=== PATIENT | male | born 1950 | race Caucasian/White ===

== ENCOUNTER 2017-03-26 15:17 | Outpatient (CLI) | payer MEDICARE, OTHER ==
[2017-03-26 16:16] LABS: #Eosinphils 0.1 thou/uL (0.0-0.7); #Lymphocytes 1.2 thou/uL (1.20-3.40); #Monocytes 0.7 thou/uL (0.11-0.59); #Neutrophils 7.7 thou/uL (1.40-6.50); %Basophils 0.5 % (0.0-1.0); %Eosinophils 1.1 % (0.0-10.0); %Lymphocytes 12.7 % (21.0-51.0); %Monocytes 7.1 % (0.0-10.0); %Neutrophils 78.7 % (42.0-75.0); Hemoglobin 15.2 g/dL (14.0-18.0); Mean Corpuscular HGB CONC 33.2 g/dL (32.0-36.0); Mean Corpuscular Hemoglobin 31.2 pg (27.0-31.0); Mean Platelet Volume 6.8 fL (7.4-10.4); Platelet Count 218 thou/uL (130-400); RBC Distribution Width 12.5 % (11.5-14.5); Red Blood Cell (RBC) Count 4.87 mill/uL (4.70-6.10); White Blood Cell (WBC) Count 9.8 thou/uL (4.8-10.8)
--- NOTE | 2017-03-26 16:22 | RAD ---
PA AND LATERAL OF THE CHEST: INDICATION: Preop exam. COMPARISON: None. FINDINGS: Lungs are clear. Heart size is within normal limits. 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 IMPRESSION: No acute cardiopulmonary abnormality. POS: [facility]
[2017-03-26 16:40] LABS: Anion Gap 12 mmol/L (10-20); BUN (Urea Nitrogen) 17 mg/dL (8.4-25.7); Calc. Creatinine Clearance 0 mL/min (70-130); Calcium 10.1 mg/dL (7.8-10.44); Carbon Dioxide 29 mmol/L (23-31); Chloride 100 mmol/L (98-107); Estimated GFR-MDRD 72; Glucose 99 mg/dL (80-115); Potassium 4.1 mmol/L (3.5-5.1); Sodium 137 mmol/L (136-145)
== END 2017-03-26 15:18 | disposition home or self-care (01) ==
LOC: LABBT 15:17
PROVIDERS: ATTEND Orthopaedic Surgery Hand Surgery
DX: Z01.818 Encounter for other preprocedural examination (principal); M19.131 Post-traumatic osteoarthritis, right wrist
CPT/HCPCS: 71046; 80048; 85025; 85610

== ENCOUNTER 2017-03-30 09:04 | Day surgery (SDC) | payer MEDICARE, OTHER ==
[2017-03-26 15:37] VITALS: BMI 34.2
[2017-03-30] MEDS ORDERED: CEFAZOLIN/Water 2 GM/20 ML SYRINGE ONE (09:31)
[2017-03-30] MEDS ORDERED: Midazolam HCl 2 mg/2 ml Vial ONE ×2 (09:55→10:37)
[2017-03-30] MEDS ORDERED: Fentanyl 100 MCG/2 ML VIAL ONE ×3 (09:55→15:23)
[2017-03-30] MEDS ORDERED: Zolpidem Tartrate 5 MG TAB PO PRN (10:30)
[2017-03-30] MEDS ORDERED: Ketorolac Tromethamine 30 MG/ML VIAL IVP PRN (10:30)
[2017-03-30] MEDS ORDERED: traMADol HCl 50 MG TAB PO PRN ×2 (10:30)
[2017-03-30] MEDS ORDERED: HYDROcodone/Acetaminophen 10/325 mg Tablet PO PRN ×2 (10:30)
[2017-03-30] MEDS ORDERED: Ondansetron HCl/PF 4 MG/2 ML Vial IVP PRN (10:30)
[2017-03-30] MEDS ORDERED: Promethazine HCl 25 MG/ML VIAL IM PRN (10:30)
[2017-03-30] MEDS ORDERED: Ropivacaine 0.2% 550 ML 550 ML NERVE BLCK SCH (10:30)
[2017-03-30] MEDS ORDERED: Fentanyl 100 MCG/2 ML VIAL IV PRN (10:31)
[2017-03-30] MEDS ORDERED: Thrombin 5000 UNITS/5 ML VIAL ONE (10:39)
[2017-03-30] MEDS ORDERED: Bacitracin Zinc Ointment 30 gm TUBE ONE (10:39)
--- NOTE | 2017-03-30 13:36 | EKG ---
Test Reason : PREOP Blood Pressure : / mmHG Vent. Rate : 069 BPM Atrial Rate : 069 BPM P-R Int : 210 ms QRS Dur : 088 ms QT Int : 392 ms P-R-T Axes : 039 023 023 degrees QTc Int : 420 ms Sinus rhythm with 1st degree A-V block Otherwise normal ECG Confirmed by OLI FAROOQ ([id number]) on 03/30/2017 1:36:17 PM Referred By: LORRAINE Confirmed By:OLI FAROOQ
[2017-03-30] MEDS ORDERED: Ropivacaine 0.2% HCl/PF (40 MG/20 ML VIAL) ONE (13:49)
[2017-03-30] MEDS ORDERED: Ropivacaine 0.5% HCl/PF (150 MG/30 ML VIAL) ONE (13:49)
[2017-03-30] MEDS ORDERED: Propofol 200 MG/20 ML VIAL ONE (15:21)
[2017-03-30] MEDS ORDERED: Dexamethasone 20 MG/5 ML VIAL ONE (15:21)
[2017-03-30] MEDS ORDERED: Ketorolac Tromethamine 30 MG/ML VIAL ONE ×2 (15:21→16:37)
[2017-03-30] MEDS ORDERED: diphenhydrAMINE 50 MG/ML VIAL ONE (15:21)
[2017-03-30] MEDS ORDERED: Lidocaine 1% PF 5 ML VIAL ONE (15:21)
[2017-03-30] MEDS ORDERED: Metoclopramide HCl 10 MG/2 ML VIAL ONE (15:21)
[2017-03-30] MEDS ORDERED: ePHEDrine/0.9% NaCl/PF SYRINGE 50 mg/10 ml ONE (15:21)
[2017-03-30] MEDS ORDERED: Ondansetron HCl/PF 4 MG/2 ML Vial ONE (15:21)
--- NOTE | 2017-03-30 21:02 | RAD ---
RIGHT WRIST: 03/30/17 Three fluoroscopic views taken in OR during internal fixation procedure. FINDINGS/IMPRESSION: These views show small metallic screws and pins transfixing carpal bones. The scaphoid has been excis ed. POS: [facility]
--- NOTE | 2017-04-02 12:48 | OP ---
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 POSTOPERATIVE DIAGNOSES: 1. 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 2. The patient had moderate amount of dorsal intercalated instability with a very visible scapholuna te gap. PROCEDURE PERFORMED: 1. Right wrist scaphoid excision. 2. Right wrist 4 corner arthrodesis/capital hamate lunate triquetrum mid carpal fusion. Two bone gr afting from cadaver and from the scaphoid. 3. Intraoperative capsule biopsy with diagnosis of possible pseudogout. 4. Marked tenosynovitis require tenosynovectomy. SURGEON: Dr. Ovidio Alonzo TOURNIQUET TIME: 120 minutes. ESTIMATED BLOOD LOSS: Estimated blood loss 100 mL. INDICATIONS: The patient had a SLAC phenomenon with edema probably dictated with tenosynovitis which was found. He had a complete obliteration of radial scaphoid and radial capitate joint, capitate pb nic joint markedly involved so this procedure was indicated more so than a total wrist fusion and de finitely more so than a proximal carpectomy. DESCRIPTION OF PROCEURE: After successful general LMA technique, a sterile prep and drape the limb w as exsanguinated, tourniquet inflated to 250 mmHg pressure. I then made a zigzag incision centered a long the fourth dorsal compartment, carried through skin, subcutaneous tissue, identifying the retina culum. Released the retinaculum with a Mono blade to see if the extensor pollicus longus protected it. We then retracted the contents. I did a distal posterior interosseous neurectomy done directly from inside the fourth compartment. We made a V-shaped opening in the wrist joint capsule to expose the entire radiocarpal wrist. From here, it was clear that the scaphoid more degenerated so we used a combination of a wire placed inside, a towel clip hot die picker along with tenotomy scissors and Freers. We were able to remove the scaphoid. Went to the back table, we remove the hard chondral bone, go t down to some soft subchondral bone, but it was less than adequate for a complete fusion as we had t o borrow a bone graft from cadaver. This was brought into the field and soaked for 15 minutes before using normal saline. We then used a combination of bur and small curettes with retraction from myself, assistant bookkeeper and the p atient then had a complete decortication of the involved capital lunate or triquetrum having to have to capitate joints down to bleeding cancellous bone. Once this was done, we irrigated and removed an y intraoperative impediments and then placed bone graft appropriately in the joint especially the cap ital lunate. Using K-wires under lunate to the radius and reduced the joint more central and to elim inate much of the dorsal instability as possible Once we had done this, we then pinned the cap itate to the lunate on its very radial end, we capitated the hand, performed x-rays and we had excell ent reduction. We placed the remainder of the cancellous bone chips from the cadaver in the joints a ll 4 of them, and once this was done, we then began progressive screw passage. We maintained the sag ittal plane reduction. We then placed a 2-4 cannulated screw in standard fashion across the capitate into the lunate without violating any of the joints, crossed the lunate and triquetrum, the screws f or the triquetrum area through a separate incision, then we placed a screw from the hamate into the capitate and this screw remained in excellent position. Finally a screw was placed from the hamate i nto the triquetrum and this screw had excellent purchase as well. We could replace more bone graft i nside the defects, we deflated the tourniquet, obtained hemostasis. We closed the capsule, rep roducing the feedback to its radial side with excellent #1 Ethibond OS 4 suture interrupted mattress pattern. The patient then had hemostasis completed, closed the retinaculum with a 3-0 Monocryl in in terrupted fashion and then the patient left the operating room without evidence of anesthetic or oper ative complication with the skin closure involving 2 layers running 3-0, 4-0 Monocryl for the deep d ermis and interrupted 4-0 nylon for the epidermis. Bulky dressing was applied with a sugar tong spli nt and the patient left the operating room without evidence of anesthetic or operative complication.
== END 2017-03-30 18:40 | disposition home or self-care (01) ==
LOC: SDC 09:04
PROVIDERS: ATTEND Orthopaedic Surgery Hand Surgery
PROC: 0RGN07Z Fusion of Right Wrist Joint with Autologous Tissue Substitute, Open Approach (ICD-10-PCS; principal; 2017-03-30)
DX: M19.131 Post-traumatic osteoarthritis, right wrist (principal); I10 Essential (primary) hypertension; Z98.1 Arthrodesis status; Z98.890 Other specified postprocedural states
CPT/HCPCS: 25825; 73110; 76001; 88305; 88333; 89060; 93005; 96374; A4306; C1713 ×2; 93010; J0131; J1100; J1200; J1885; J2001; J2250; J2405; J2704; J2765; J2795; J3010; J7620

== ENCOUNTER 2017-04-06 15:41 | Observation (INO) | payer MEDICARE, OTHER ==
[~2017-04-06 15:41] MED LIST: Lidocaine 1% PF 5 ML VIAL ONE; PHENYLEPHRINE-NS 100 MCG/ML 10 ML SYRINGE ONE; Propofol 200 MG/20 ML VIAL ONE; ePHEDrine/0.9% NaCl/PF SYRINGE 50 mg/10 ml ONE
[2017-04-06] MEDS ORDERED: Vancomycin HCl 1.5 GM in Sodium Chloride 0.9% 250 ML 300 ML IVPB SCH (16:30)
[2017-04-06] MEDS ORDERED: Sodium Chloride 0.9% 50 ML ONE (21:22)
[2017-04-06] MEDS ORDERED: Bupivacaine 0.5% 10 ML VIAL ONE (21:56)
[2017-04-06] MEDS ORDERED: Midazolam HCl 2 mg/2 ml Vial ONE (22:06)
[2017-04-06] MEDS ORDERED: Fentanyl 250 MCG/5 ML VIAL ONE (22:06)
[2017-04-06] MEDS ORDERED: Thrombin 5000 UNITS/5 ML VIAL ONE ×3 (22:45→23:49)
[2017-04-06] MEDS ORDERED: Bacitracin Zinc Ointment 30 gm TUBE ONE (23:51)
[2017-04-07] MEDS ORDERED: Promethazine HCl 25 MG/ML VIAL SLOW IVP PRN (00:29)
[2017-04-07] MEDS ORDERED: Ondansetron HCl/PF 4 MG/2 ML Vial IVP PRN (00:29)
[2017-04-07] MEDS ORDERED: Promethazine HCl 25 MG/ML VIAL IM PRN (00:29)
[2017-04-07] MEDS ORDERED: Ondansetron HCl/PF 4 MG/2 ML Vial IV PRN (00:31)
[2017-04-07] MEDS ORDERED: Ondansetron HCl/PF 4 MG/2 ML Vial ONE (00:34)
[2017-04-07] MEDS ORDERED: Communication Order-Pharmacy FS SCH (00:45)
[2017-04-07] MEDS ORDERED: TETANUS AND DIPHTHERIA TOX/PF 0.5 ML DISP.SYRIN IM SCH (00:45)
[2017-04-07 01:01] LABS: #Eosinphils 0.3 thou/uL (0.0-0.7); #Lymphocytes 1.5 thou/uL (1.20-3.40); #Monocytes 0.5 thou/uL (0.11-0.59); #Neutrophils 5.7 thou/uL (1.40-6.50); %Basophils 0.4 % (0.0-1.0); %Eosinophils 3.4 % (0.0-10.0); %Lymphocytes 18.3 % (21.0-51.0); %Monocytes 6.3 % (0.0-10.0); %Neutrophils 71.6 % (42.0-75.0); Hemoglobin 12.9 g/dL (14.0-18.0); Mean Corpuscular HGB CONC 31.6 g/dL (32.0-36.0); Mean Corpuscular Hemoglobin 30.2 pg (27.0-31.0); Mean Corpuscular Volume 95.5 fl (80.0-94.0); Mean Platelet Volume 6.4 fL (7.4-10.4); Platelet Count 283 thou/uL (130-400); RBC Distribution Width 12.5 % (11.5-14.5); Red Blood Cell (RBC) Count 4.29 mill/uL (4.70-6.10)
[2017-04-07 01:10] LABS: INR-International Normal Ratio 1.1; PTT 34.7 SEC (22.9-36.1); Prothrombin Time 14.4 SEC (12.0-14.7)
[2017-04-07] MEDS: HYDROcodone/Acetaminophen 5/325 mg Tablet PO PRN ×5 (01:52→19:56)
[2017-04-07 02:03] VITALS: BMI 34.4
[2017-04-07 02:09] LABS: ALT (SGPT) 28 U/L (8-55); AST (SGOT) 19 U/L (5-34); Albumin 3.9 g/dL (3.4-4.8); Alkaline Phosphatase 87 U/L (40-150); Anion Gap 14 mmol/L (10-20); BUN (Urea Nitrogen) 15 mg/dL (8.4-25.7); Bilirubin, Total 0.6 mg/dL (0.2-1.2); Calc. Creatinine Clearance 99 mL/min (70-130); Calcium 9.4 mg/dL (7.8-10.44); Carbon Dioxide 24 mmol/L (23-31); Chloride 102 mmol/L (98-107); Estimated GFR-MDRD 71; Globulin 2.8 g/dL (2.4-3.5); Glucose 115 mg/dL (80-115); Potassium 4.1 mmol/L (3.5-5.1); Protein, Total 6.7 g/dL (5.8-8.1); Sodium 136 mmol/L (136-145)
[2017-04-07] MEDS: Vancomycin HCl 1 GM in Premix Bag 1 BAG IVPB SCH ×3 (02:49→17:25)
[2017-04-07] MEDS ORDERED: Lisinopril 10 MG TAB PO SCH (09:00)
[2017-04-07 22:38] VITALS: BP 117/72; TEMP 97.6
--- NOTE | 2017-04-09 13:59 | OP ---
DATE OF PROCEDURE: 04/07/2017 PREOPERATIVE DIAGNOSIS: Right wrist hematoma. POSTOPERATIVE DIAGNOSIS: Right wrist hematoma. FINDINGS: 1. Hematoma, subcutaneous without gross evidence of infection including no gross evidence of arteria l bleeder, but small venous bleeders found, multiple. 2. No loss of bone graft deep in the wrist. PROCEDURES PERFORMED: 1. Arthrotomy wrist joint. 2. Evacuation of hematoma, right wrist. INDICATIONS: Patient returned to clinic x2 for evaluation of edema in his wrist. Initially felt he might have a developing hematoma when he got slightly bigger, postop day now #9, it was felt that he should have drainage of the hematoma to protect the skin and taken to prevent later infection from th e developing hematoma, becoming an abscess to relieve some of his pain. He and his were camp head counselor ed. ANESTHESIA: General LMA technique. TOURNIQUET TIME: 35 minutes. ESTIMATED BLOOD LOSS: Including the blood inside which proved to have some cloudy components approxi mately 700 mL. DESCRIPTION OF PROCEDURE: After successful general endotracheal anesthesia, the limb was prepped and draped. We then exsanguinated the limb, inflated the tourniquet to 250 mmHg pressure. We opened hi s previous sutures, opened this included the deep dermal suture, which was running Monocryl, immediat hema opened his fourth extensor compartment and then went down to the level of his wrist joint. The a yolanda of scaphoid had some blood in it, well-developed hematoma with moderate amount of clot subcutaneo usly. We then opened up his wrist joint capsule, irrigated this out with 3 liters of normal saline a nd Pulsavac pressure and another 3 liters for the rest of the wound with Pulsavac pressure antibiotic bacitracin inside all 6 liters. Cultures were taken. The hematoma sent to the lab. We then deflat ed the tourniquet and watched for evidence of bleeding. First, we used sterile, cold, normal saline on lap sponges. After 5 minutes of this, we then placed thrombin-soaked Gelfoam. After this, we the n evaluated and had one bleed of venous type, dorsal approximately 2-3 mm and it was oozing. W e then surmised maybe one source of the irritation, and we used a cautery and combination with vessel clip applied, we applied clips. We then used the drain, placed it deep in the wound underneath the fascia and the capsule. We then closed the capsule using again, #2 Ethibond OS-4 needle interrupted [id number]. We then closed the retinaculum with a 0-Monocryl without complication and then the drain was maintained through a separate stab wound, we closed the deep dermis with running 4-0 Monocr yl and the skin with interrupted 4-0 nylon in a simple mattress pattern. The patient left the operat ing room and a bulky dressing with excellent circulation, no gross infection, hematoma gone. Splint was applied in neutral position and an Casimiro wrap was applied. He left the operating room.
== END 2017-04-07 22:10 | disposition home or self-care (01) ==
LOC: SDC 15:41 → SURG A 04-07 00:31
PROVIDERS: ADMIT Orthopaedic Surgery Hand Surgery; ATTEND Orthopaedic Surgery Hand Surgery
PROC: 0X9G0ZZ Drainage of Right Wrist Region, Open Approach (ICD-10-PCS; principal; 2017-04-06)
DX: S60.211A Contusion of right wrist, initial encounter (principal); Z79.2 Long term (current) use of antibiotics; Z79.899 Other long term (current) drug therapy; Z98.1 Arthrodesis status; Z98.890 Other specified postprocedural states
CPT/HCPCS: 25028; 80053; 85025; 85379; 85610; 85730; 87070; 87075; 87205; 96365; 96366; 96374; 96375; 96376; G0378; 36415; A4216; J2001; J2250; J2270; J2405; J2704; J3010; J3370; J3490; J7050

== ENCOUNTER 2017-09-28 10:04 | Outpatient (CLI) | payer MEDICARE, OTHER ==
--- NOTE | 2017-09-28 11:55 | MRI ---
MRI OF THE RIGHT WRIST WITHOUT CONTRAST: INDICATION: History of excision of the scaphoid of the right wrist. COMPARISON: Right wrist radiographs dated 04/03/17. FINDINGS: There is postsurgical change of 4-quadrant fusion and scaphoidectomy seen on the comparison radiograp h dated 03/30/17. There is susceptibility artifact around the screw fixation of the carpal fusion talia t produces significant susceptibility artifact limiting image detail. There is prominent joint effus ion seen within the DRUJ. There is moderate to severe 1st CMC osteoarthrosis. No definite acute oss eous abnormality is evident. The carpal tunnel contents appear within normal limits. Visualized asp ects of the extensor tendons appear within normal limits. IMPRESSION: 1. Heavily limited examination due to metallic susceptibility artifact from the patient's carpal fus ion. 2. Nonspecific joint effusion of the distal radial ulnar joint. 3. 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 POS: [facility]
== END 2017-09-28 10:05 | disposition home or self-care (01) ==
LOC: TBSIIMAG 10:04
PROVIDERS: ATTEND Orthopaedic Surgery Hand Surgery
DX: S63.591A Other specified sprain of right wrist, initial encounter (principal); M19.031 Primary osteoarthritis, right wrist; M25.431 Effusion, right wrist

== ENCOUNTER 2024-01-29 13:55 | Inpatient (IN) | payer MEDICARE, OTHER ==
[2024-01-29] MEDS ORDERED: Iopamidol-370 76% 500 ML MDV (1 ML CHARGE) ONE (14:08)
[2024-01-29 14:59] LABS: #Basophils Less than 0.03 10x3/uL (0.0-0.2); #Eosinophils Less than 0.03 10x3/uL (0.0-0.7); %Basophils 0.1 % (0.0-1.0); %Eosinophils 0.1 % (0.0-10.0); %Lymphocytes 4.8 % (21.0-51.0); %Monocytes 7.4 % (0.0-10.0); %Neutrophils 87.4 % (42.0-75.0); Hematocrit 44.7 % (42.0-52.0); Hemoglobin 14.5 g/dL (14.0-18.0); Mean Corpuscular HGB CONC 32.4 g/dL (32.0-36.0); Mean Corpuscular Hemoglobin 29.4 pg (27.0-31.0); Mean Corpuscular Volume 90.7 fL (78.0-98.0); Mean Platelet Volume 10.1 fL (7.4-10.4); Platelet Count 201 10x3/uL (130-400); RBC Distribution Width 13.5 % (11.5-14.5); Red Blood Cell (RBC) Count 4.93 mill/uL (4.70-6.10)
[2024-01-29 15:12] LABS: INR-International Normal Ratio 1.2; Prothrombin Time 14.9 sec (12.0-14.7)
[2024-01-29 15:13] LABS: PTT 35.4 sec (22.9-36.1)
[2024-01-29 15:21] LABS: ALT (SGPT) 47 U/L (8-55); AST (SGOT) 76 U/L (5-34); Albumin 3.1 g/dL (3.4-4.8); Alkaline Phosphatase 95 U/L (40-110); Anion Gap 17 mmol/L (10-20); BUN (Urea Nitrogen) 23 mg/dL (8.4-25.7); Bilirubin, Total 1.4 mg/dL (0.2-1.2); Calc. Creatinine Clearance 0 mL/min (70-130); Calcium 9.4 mg/dL (7.8-10.44); Carbon Dioxide 24 mmol/L (23-31); Chloride 102 mmol/L (98-107); Estimated GFR 92; Globulin 3.8 g/dL (2.4-3.5); Glucose 117 mg/dL (83-110); Lipase 6 U/L (8-78); Potassium 3.7 mmol/L (3.5-5.1); Protein, Total 6.9 g/dL (5.8-8.1); Sodium 139 mmol/L (136-145)
[2024-01-29 15:31] LABS: Troponin I Less than 0.010 ng/mL (< 0.028)
[2024-01-29 15:40] LABS: Bacteria/HPF None Seen HPF (None Seen); Bilirubin 1+ (Negative); Blood, Urine Negative (Negative); CAUTI Indications for Culture < 2yrs of age; Clarity Clear (Clear); Glucose, Urine (Dipstick) Normal (Negative); Ketone, Urine 100 mg/dL (Negative); Leukocyte Negative Leu/uL (Negative); Nitrite Negative (Negative); Protein, Urine (Dipstick) 50 mg/dL (Neg-Trace); RBC/HPF 0-3 HPF (0-3); Squamous Epithelial 0-3 HPF (0-3); Urobilinogen 3 mg/dL (Less than 2); WBC/HPF 0-3 HPF (0-3)
[2024-01-29 15:43] LABS: Urine Culture Reflex Yes Yes
[2024-01-29] MEDS ORDERED: Senokot S 8.6-50 MG TAB PO PRN (16:55)
[2024-01-29] MEDS ORDERED: hydrALAZINE 20 MG/ML VIAL SLOW IVP PRN (16:55)
[2024-01-29] MEDS ORDERED: Lorazepam 2 MG/ML VIAL IM PRN (16:58)
[2024-01-29] MEDS ORDERED: Lorazepam 1 MG TAB PO PRN (16:58)
[2024-01-29] MEDS ORDERED: Electrolyte Replacement Protocol FS SCH (17:00)
[2024-01-29 18:28] VITALS: BMI 31.1
[2024-01-29] MEDS: Atorvastatin Calcium 40 MG TAB PO SCH (21:34)
[2024-01-29] MEDS: Magnesium 2 GM/50 ML(in water) 2 GM in Premix 1 BAG IVPB SCH (22:03)
[2024-01-30 04:16] LABS: #Basophils Less than 0.03 10x3/uL (0.0-0.2); %Basophils 0.2 % (0.0-1.0); %Eosinophils 0.9 % (0.0-10.0); %Lymphocytes 6.7 % (21.0-51.0); %Monocytes 8.4 % (0.0-10.0); %Neutrophils 83.5 % (42.0-75.0); Hematocrit 40.1 % (42.0-52.0); Hemoglobin 12.8 g/dL (14.0-18.0); Mean Corpuscular HGB CONC 31.9 g/dL (32.0-36.0); Mean Corpuscular Hemoglobin 29.3 pg (27.0-31.0); Mean Corpuscular Volume 91.8 fL (78.0-98.0); Mean Platelet Volume 9.9 fL (7.4-10.4); Platelet Count 168 10x3/uL (130-400); RBC Distribution Width 13.5 % (11.5-14.5); Red Blood Cell (RBC) Count 4.37 mill/uL (4.70-6.10)
[2024-01-30 04:39] LABS: Anion Gap 12 mmol/L (10-20); BUN (Urea Nitrogen) 24 mg/dL (8.4-25.7); Calc. Creatinine Clearance 108 mL/min (70-130); Calcium 8.8 mg/dL (7.8-10.44); Carbon Dioxide 26 mmol/L (23-31); Cardiac Risk 3.7 (Less than 4.5); Chloride 105 mmol/L (98-107); Cholesterol 128 mg/dl (< 200 Desired); Estimated GFR 93; Glucose 119 mg/dL (83-110); HDL Cholesterol 35 mg/dL (>60 Neg Risk); LDL Cholesterol, Calculated 78 mg/dL; Potassium 3.5 mmol/L (3.5-5.1); Sodium 139 mmol/L (136-145); Triglycerides 75 mg/dL (Less than 150)
[2024-01-30] MEDS ORDERED: Gabapentin 300 MG CAP PO PRN (07:50)
[2024-01-30] MEDS: Multivit, Therapeutic 1 TAB PO SCH (09:34)
[2024-01-30] MEDS: Potassium Chloride 20 MEQ TAB PO SCH (09:34)
[2024-01-30] MEDS: Folic Acid 1 MG TAB PO SCH (09:34)
[2024-01-30] MEDS: Aspirin 81 mg Enteric Coated Tablet PO SCH (09:34)
[2024-01-30 11:29] LABS: Hemoglobin A1c 5.4 % (4.0-6.0)
[2024-01-30 14:32] LABS: Amphetamine Not Detected (NotDetected); Barbiturates Screen Not Detected (NotDetected); Benzodiazepine Screen Not Detected (NotDetected); Cocaine Metabolite Screen Not Detected (NotDetected); Methadone Not Detected (NotDetected); Methamphetamine Not Detected (NotDetected); Opiate Screen Not Detected (NotDetected); Oxycodone Screen Not Detected (NotDetected); Phencyclidine (PCP) Not Detected (NotDetected); THC/Cannabinoid Screen Not Detected (NotDetected); Tricyclic Screen Not Detected (NotDetected)
[2024-01-30] MEDS: Lorazepam 1 MG TAB PO PRN (18:38)
[2024-01-31 04:29] LABS: Hematocrit 40.9 % (42.0-52.0); Mean Corpuscular HGB CONC 31.8 g/dL (32.0-36.0); Mean Corpuscular Hemoglobin 29.1 pg (27.0-31.0); Mean Corpuscular Volume 91.5 fL (78.0-98.0); Platelet Count 194 10x3/uL (130-400); RBC Distribution Width 13.3 % (11.5-14.5); Red Blood Cell (RBC) Count 4.47 mill/uL (4.70-6.10)
[2024-01-31 04:47] LABS: Anion Gap 13 mmol/L (10-20); BUN (Urea Nitrogen) 18 mg/dL (8.4-25.7); Calc. Creatinine Clearance 118 mL/min (70-130); Calcium 8.7 mg/dL (7.8-10.44); Carbon Dioxide 28 mmol/L (23-31); Chloride 104 mmol/L (98-107); Estimated GFR 96; Glucose 121 mg/dL (83-110); Potassium 3.6 mmol/L (3.5-5.1); Sodium 141 mmol/L (136-145)
[2024-01-31] MEDS ORDERED: Lorazepam 1 MG TAB PO PRN (16:58)
[2024-02-01] MEDS: Lisinopril 10 MG TAB PO SCH (09:27)
[2024-02-01] MEDS: Calcium Carbonate 500 MG ChewTAB PO PRN (10:44)
[2024-02-01] MEDS ORDERED: Lorazepam 0.5 MG TAB PO PRN (16:58)
[2024-02-02] MEDS: Ondansetron ODT 4 MG TAB PO PRN (03:29)
[2024-02-02] MEDS: Pantoprazole 40 MG VIAL IVP SCH ×2 (04:27→09:43)
[2024-02-02 05:43] LABS: Hematocrit 39.1 % (42.0-52.0); Hemoglobin 12.3 g/dL (14.0-18.0); Mean Corpuscular HGB CONC 31.5 g/dL (32.0-36.0); Mean Corpuscular Hemoglobin 28.5 pg (27.0-31.0); Mean Corpuscular Volume 90.7 fL (78.0-98.0); Mean Platelet Volume 10.6 fL (7.4-10.4); Platelet Count 228 10x3/uL (130-400); RBC Distribution Width 13.1 % (11.5-14.5); Red Blood Cell (RBC) Count 4.31 mill/uL (4.70-6.10)
[2024-02-02 05:53] LABS: Anion Gap 16 mmol/L (10-20); BUN (Urea Nitrogen) 23 mg/dL (8.4-25.7); Calc. Creatinine Clearance 117 mL/min (70-130); Calcium 8.7 mg/dL (7.8-10.44); Carbon Dioxide 28 mmol/L (23-31); Chloride 100 mmol/L (98-107); Estimated GFR 95; Glucose 130 mg/dL (83-110); Potassium 3.5 mmol/L (3.5-5.1); Sodium 140 mmol/L (136-145)
[2024-02-02 09:18] LABS: Hemoglobin 13.1 g/dL (14.0-18.0)
[2024-02-02] MEDS: Thiamine 100 MG TAB PO SCH (12:48)
[2024-02-02] MEDS: Ondansetron PF 4 MG/2 ML Vial IVP PRN (12:51)
[2024-02-03 04:38] LABS: Hemoglobin 10.8 g/dL (14.0-18.0); Mean Corpuscular HGB CONC 32.7 g/dL (32.0-36.0); Mean Corpuscular Hemoglobin 29.2 pg (27.0-31.0); Mean Corpuscular Volume 89.2 fL (78.0-98.0); Mean Platelet Volume 10.5 fL (7.4-10.4); Platelet Count 189 10x3/uL (130-400); RBC Distribution Width 13.1 % (11.5-14.5)
[2024-02-03 05:03] LABS: Anion Gap 9 mmol/L (10-20); BUN (Urea Nitrogen) 19 mg/dL (8.4-25.7); Calc. Creatinine Clearance 123 mL/min (70-130); Calcium 8.3 mg/dL (7.8-10.44); Carbon Dioxide 27 mmol/L (23-31); Chloride 105 mmol/L (98-107); Estimated GFR 97; Glucose 113 mg/dL (83-110); Potassium 3.5 mmol/L (3.5-5.1); Sodium 137 mmol/L (136-145)
[2024-02-03] MEDS ORDERED: PROPOFOL 20 ML ONE (07:32)
[2024-02-03] MEDS ORDERED: Dexamethasone 20 MG/5 ML VIAL ONE (07:37)
[2024-02-03] MEDS ORDERED: KETAMINE 100 MG/ML (5ML VIAL) ONE (07:49)
[2024-02-03] MEDS ORDERED: PHENYLEPHRINE-NS 100 MCG/ML 10 ML SYRINGE ONE (08:28)
[2024-02-03] MEDS: Thiamine 100 MG TAB PO SCH (11:40)
[2024-02-03] MEDS: Sodium Chloride 0.9% 1,000 ML IV SCH (15:30)
[2024-02-03 23:38] LABS: Bilirubin Negative (Negative); Blood, Urine Negative (Negative); Clarity Clear (Clear); Glucose, Urine (Dipstick) Normal (Negative); Ketone, Urine Trace mg/dL (Negative); Leukocyte Negative Leu/uL (Negative); Nitrite Negative (Negative); Protein, Urine (Dipstick) Negative (Neg-Trace); Specific Gravity, Urine 1.028 (1.002-1.036); pH, Urine 5.5 (5.0-9.0)
[2024-02-04 05:34] LABS: #Basophils Less than 0.03 10x3/uL (0.0-0.2); %Basophils 0.2 % (0.0-1.0); %Eosinophils 6.4 % (0.0-10.0); %Monocytes 8.3 % (0.0-10.0); %Neutrophils 70.5 % (42.0-75.0); Hematocrit 32.2 % (42.0-52.0); Hemoglobin 10.4 g/dL (14.0-18.0); Mean Corpuscular HGB CONC 32.3 g/dL (32.0-36.0); Mean Corpuscular Hemoglobin 29.3 pg (27.0-31.0); Mean Corpuscular Volume 90.7 fL (78.0-98.0); Mean Platelet Volume 10.5 fL (7.4-10.4); Platelet Count 215 10x3/uL (130-400); Red Blood Cell (RBC) Count 3.55 mill/uL (4.70-6.10)
[2024-02-04 05:57] LABS: ALT (SGPT) 51 U/L (8-55); AST (SGOT) 33 U/L (5-34); Albumin 2.2 g/dL (3.4-4.8); Alkaline Phosphatase 64 U/L (40-110); Anion Gap 10 mmol/L (10-20); BUN (Urea Nitrogen) 13 mg/dL (8.4-25.7); Bilirubin, Total 0.6 mg/dL (0.2-1.2); Calc. Creatinine Clearance 135 mL/min (70-130); Calcium 8.1 mg/dL (7.8-10.44); Carbon Dioxide 26 mmol/L (23-31); Chloride 106 mmol/L (98-107); Estimated GFR 100; Globulin 2.9 g/dL (2.4-3.5); Glucose 114 mg/dL (83-110); Potassium 3.2 mmol/L (3.5-5.1); Protein, Total 5.1 g/dL (5.8-8.1); Sodium 139 mmol/L (136-145)
[2024-02-04 13:53] VITALS: BMI 31.1
[2024-02-04] MEDS: Melatonin 3 MG TAB PO PRN (20:41)
[2024-02-04] MEDS: Acetaminophen 325 MG TAB PO PRN (20:42)
[2024-02-05] MEDS: Sodium Chloride 0.9% 1,000 ML IV SCH (00:12)
[2024-02-05] MEDS: Albumin 25% 25 GM (100 mL) BOT IVPB SCH (00:13)
[2024-02-05 01:13] LABS: #Basophils Less than 0.03 10x3/uL (0.0-0.2); %Basophils 0.2 % (0.0-1.0); %Eosinophils 3.9 % (0.0-10.0); %Lymphocytes 10.3 % (21.0-51.0); %Monocytes 8.7 % (0.0-10.0); %Neutrophils 76.4 % (42.0-75.0); Hematocrit 32.7 % (42.0-52.0); Hemoglobin 10.3 g/dL (14.0-18.0); Mean Corpuscular HGB CONC 31.5 g/dL (32.0-36.0); Mean Corpuscular Volume 92.1 fL (78.0-98.0); Platelet Count 226 10x3/uL (130-400); Red Blood Cell (RBC) Count 3.55 mill/uL (4.70-6.10)
[2024-02-05 02:56] LABS: ALT (SGPT) 50 U/L (8-55); AST (SGOT) 31 U/L (5-34); Albumin 2.6 g/dL (3.4-4.8); Alkaline Phosphatase 61 U/L (40-110); Anion Gap 14 mmol/L (10-20); BUN (Urea Nitrogen) 14 mg/dL (8.4-25.7); Bilirubin, Total 0.5 mg/dL (0.2-1.2); Calc. Creatinine Clearance 74 mL/min (70-130); Calcium 8.2 mg/dL (7.8-10.44); Carbon Dioxide 22 mmol/L (23-31); Chloride 106 mmol/L (98-107); Estimated GFR 68; Globulin 3.1 g/dL (2.4-3.5); Glucose 142 mg/dL (83-110); Potassium 3.4 mmol/L (3.5-5.1); Protein, Total 5.7 g/dL (5.8-8.1); Sodium 139 mmol/L (136-145)
[2024-02-05 06:15] LABS: #Basophils Less than 0.03 10x3/uL (0.0-0.2); %Basophils 0.2 % (0.0-1.0); %Eosinophils 4.8 % (0.0-10.0); %Lymphocytes 14.7 % (21.0-51.0); %Monocytes 9.4 % (0.0-10.0); %Neutrophils 70.5 % (42.0-75.0); Hematocrit 32.6 % (42.0-52.0); Hemoglobin 10.4 g/dL (14.0-18.0); Mean Corpuscular HGB CONC 31.9 g/dL (32.0-36.0); Mean Corpuscular Hemoglobin 28.9 pg (27.0-31.0); Mean Corpuscular Volume 90.6 fL (78.0-98.0); Mean Platelet Volume 10.5 fL (7.4-10.4); Platelet Count 238 10x3/uL (130-400); RBC Distribution Width 13.2 % (11.5-14.5)
[2024-02-05 06:25] LABS: ALT (SGPT) 49 U/L (8-55); AST (SGOT) 29 U/L (5-34); Albumin 2.6 g/dL (3.4-4.8); Alkaline Phosphatase 60 U/L (40-110); Anion Gap 14 mmol/L (10-20); BUN (Urea Nitrogen) 14 mg/dL (8.4-25.7); Bilirubin, Total 0.6 mg/dL (0.2-1.2); Calc. Creatinine Clearance 94 mL/min (70-130); Calcium 8.1 mg/dL (7.8-10.44); Carbon Dioxide 26 mmol/L (23-31); Chloride 104 mmol/L (98-107); Estimated GFR 89; Globulin 2.9 g/dL (2.4-3.5); Glucose 130 mg/dL (83-110); Potassium 3.3 mmol/L (3.5-5.1); Protein, Total 5.5 g/dL (5.8-8.1); Sodium 141 mmol/L (136-145)
[2024-02-05] MEDS: Phenol 177 ML BOT PO PRN (18:49)
[2024-02-05] MEDS ORDERED: Benzonatate 100 MG CAP PO PRN (22:47)
[2024-02-06 06:33] LABS: #Basophils Less than 0.03 10x3/uL (0.0-0.2); %Basophils 0.1 % (0.0-1.0); %Eosinophils 4.8 % (0.0-10.0); %Lymphocytes 13.8 % (21.0-51.0); %Monocytes 8.4 % (0.0-10.0); %Neutrophils 72.3 % (42.0-75.0); Hematocrit 34.4 % (42.0-52.0); Mean Corpuscular Volume 90.8 fL (78.0-98.0); Mean Platelet Volume 10.3 fL (7.4-10.4); Platelet Count 286 10x3/uL (130-400); RBC Distribution Width 13.1 % (11.5-14.5); Red Blood Cell (RBC) Count 3.79 mill/uL (4.70-6.10)
[2024-02-06 06:58] LABS: ALT (SGPT) 40 U/L (8-55); AST (SGOT) 22 U/L (5-34); Albumin 3.4 g/dL (3.4-4.8); Alkaline Phosphatase 62 U/L (40-110); Anion Gap 11 mmol/L (10-20); BUN (Urea Nitrogen) 14 mg/dL (8.4-25.7); Bilirubin, Total 0.6 mg/dL (0.2-1.2); Calc. Creatinine Clearance 118 mL/min (70-130); Calcium 8.8 mg/dL (7.8-10.44); Carbon Dioxide 29 mmol/L (23-31); Chloride 105 mmol/L (98-107); Estimated GFR 96; Globulin 2.7 g/dL (2.4-3.5); Glucose 119 mg/dL (83-110); Potassium 3.5 mmol/L (3.5-5.1); Protein, Total 6.1 g/dL (5.8-8.1); Sodium 141 mmol/L (136-145)
[2024-02-06] MEDS: Pantoprazole DR 40 MG TAB PO SCH ×2 (10:39→20:45)
[2024-02-06] MEDS: tiZANidine HCl 4 MG TAB PO PRN (20:43)
[2024-02-06] MEDS: Amoxicillin/Potassium Clav 875 MG TAB PO SCH (20:44)
[2024-02-06 23:46] VITALS: TEMP 98.7
[2024-02-07 07:17] LABS: #Basophils Less than 0.03 10x3/uL (0.0-0.2); %Basophils 0.2 % (0.0-1.0); %Eosinophils 3.2 % (0.0-10.0); %Monocytes 8.5 % (0.0-10.0); %Neutrophils 71.6 % (42.0-75.0); Hematocrit 34.3 % (42.0-52.0); Hemoglobin 10.7 g/dL (14.0-18.0); Mean Corpuscular HGB CONC 31.2 g/dL (32.0-36.0); Mean Corpuscular Hemoglobin 28.3 pg (27.0-31.0); Mean Corpuscular Volume 90.7 fL (78.0-98.0); Mean Platelet Volume 10.1 fL (7.4-10.4); Platelet Count 282 10x3/uL (130-400); RBC Distribution Width 13.4 % (11.5-14.5); Red Blood Cell (RBC) Count 3.78 mill/uL (4.70-6.10)
[2024-02-07 07:35] LABS: Anion Gap 11 mmol/L (10-20); BUN (Urea Nitrogen) 16 mg/dL (8.4-25.7); Calc. Creatinine Clearance 113 mL/min (70-130); Calcium 8.8 mg/dL (7.8-10.44); Carbon Dioxide 30 mmol/L (23-31); Chloride 103 mmol/L (98-107); Estimated GFR 94; Glucose 124 mg/dL (83-110); Potassium 3.4 mmol/L (3.5-5.1); Sodium 141 mmol/L (136-145)
[2024-02-07] MEDS: Bisacodyl 5 MG TAB PO PRN (08:14)
[2024-02-07 11:35] VITALS: BP 109/68
[2024-02-07] MEDS: Potassium Chloride 20 MEQ TAB PO SCH (12:07)
== END 2024-02-07 18:25 | DRG 56 ==
LOC: ERS 13:55 → 2SE 16:43 → OBSVTOIN 16:43 → T4-B 02-02 18:32
PROVIDERS: ADMIT Internal Medicine; ATTEND Internal Medicine
PROC: 0DJ08ZZ Inspection of Upper Intestinal Tract, Via Natural or Artificial Opening Endoscopic (ICD-10-PCS; principal; 2024-02-03)
DX: I69.351 Hemiplegia and hemiparesis following cerebral infarction affecting right dominant side (principal); G93.41 Metabolic encephalopathy; K21.01 Gastro-esophageal reflux disease with esophagitis, with bleeding; J02.9 Acute pharyngitis, unspecified; I10 Essential (primary) hypertension; E78.5 Hyperlipidemia, unspecified; F10.10 Alcohol abuse, uncomplicated; K22.70 Barrett's esophagus without dysplasia; Z79.899 Other long term (current) drug therapy
CPT/HCPCS: 36415; 36416; 51701; 70450; 70496; 70498; 70551; 71045; 80048; 80053; 80061; 80306; 81001; 81003; 82140; 83036; 83605; 83690; 83735; 83880; 84145; 84443; 84484; 85025; 85027; 85610; 85730; 87086; 93005; 93306; 97139; J1100; J2405; J2470; J2704; J3411; J3475; J7030; P9047; Q0162; Q9967